=== PATIENT | female | born 1970 | race Caucasian/White ===

== ENCOUNTER 2020-01-19 14:07 | Emergency (ER) | payer MEDICAID ==
[~2020-01-19] VITALS: Ht 162.6 cm; Wt 136.1 kg
[2020-01-19 14:20] VITALS: BP_SYST 133
--- NOTE | 2020-01-19 14:20 | NUR ---
Patient triaged and placed in waiting room. VSS and patient appears in no acute distress at this time. Awaiting available bed, and MD notified of need for MSE.
--- NOTE | 2020-01-19 15:23 | NUR ---
ER in triage examining patient.
[2020-01-19] MEDS ORDERED: ONDANSETRON 4 MG ODT TAB PO ONE (15:30)
[2020-01-19] MEDS ORDERED: KETOROLAC TROMETHAMINE 60 MG/2 ML VIAL IM ONE (15:30)
--- NOTE | 2020-01-19 16:00 | NUR ---
Patient to ER bed 8 to gown for evaluation. Side rails up.
[2020-01-19 16:25] LABS: BASOPHILS # (AUTO) 0.1 K/uL (0.0-0.2); BASOPHILS % (AUTO) 0.9 % (0.0-2.0); EOSINOPHILS # (AUTO) 0.1 K/uL (0.0-0.4); EOSINOPHILS % (AUTO) 0.9 % (0.0-4.0); HEMATOCRIT 38.8 % (36-48); HEMOGLOBIN 12.5 g/dL (12.0-16.0); LYMPHOCYTES # (AUTO) 1.4 K/uL (1.0-5.5); LYMPHOCYTES % (AUTO) 13.2 % (20.5-51.5); MEAN CORPUSCULAR HEMOGLOBIN 29 pg (27-31); MEAN CORPUSCULAR HGB CONC 32 % (32-36); MEAN CORPUSCULAR VOLUME 89 fL (79.0-98.0); MONOCYTES # (AUTO) 0.7 K/uL (0.0-1.0); MONOCYTES % (AUTO) 6.6 % (1.7-9.3); NEUTROPHILS # (AUTO) 8.3 K/uL (1.8-7.7); NEUTROPHILS % (AUTO) 78.4 % (40.0-70.0); PLATELET COUNT (AUTO) 237 K/uL (130-430); RED BLOOD CELL COUNT(AUTO) 4.35 MIL/uL (4.2-6.2); RED CELL DISTRIBUTION WIDTH 14.9 % (9.0-15.0); WHITE BLOOD COUNT (AUTO) 10.6 K/uL (4.8-10.8)
[2020-01-19 16:32] LABS: CALCIUM 8.7 mg/dL (8.4-11.0); CREATININE 0.84 mg/dL (0.55-1.30); POTASSIUM 4.2 mmol/L (3.5-5.1)
[2020-01-19 16:36] LABS: PROTHROMBIN TIME 9.9 SECS (9.5-12.5)
--- NOTE | 2020-01-19 16:45 | NUR ---
LABS OBTAINED, PT CALM, ALERT, RESP UNLABORED, SKIN WARM AND DR
[2020-01-19 16:47] LABS: ALBUMIN 3.4 g/dL (3.4-4.8); TOTAL BILIRUBIN 0.4 mg/dL (0.0-1.0)
--- NOTE | 2020-01-19 17:10 | NUR ---
PACING IN ROOM, SEVERE ABD PAIN, DENIES FEVER/CHILLS. RESP UNLABORED, SKIN WARM AND DRY. COMMUNICATES CLEARLY
--- NOTE | 2020-01-19 19:13 | NUR ---
Patient given written and verbal discharge instructions and verbalizes understanding. ER MD discussed with patient the results and treatment provided. Patient in stable condition. ID arm band removed. Rx of given. Patient educated on pain management and to follow up with PMD. Pain [facility] for questions provided and answered. Medication side effect fact sheet provided.
[2020-01-19 19:15] VITALS: BP_SYST 136
== END 2020-01-19 19:15 | disposition home or self-care (01) ==
LOC: SED 14:07
DX: K80.50 Calculus of bile duct without cholangitis or cholecystitis without obstruction (principal)
CPT/HCPCS: 36415; 80053; 81002; 81025; 82150; 83605; 83615; 83690; 84703; 85025; 85610; 85730; 96372; 99283; J1885; Q0162